=== PATIENT | male | born 1970 | race Caucasian/White ===

== ENCOUNTER 2018-08-11 15:25 | Emergency (ER) | payer OTHER ==
[2018-08-11 15:36] VITALS: BP 126/80
--- NOTE | 2018-08-11 16:04 | UC ---
Hand/Wrist HPI - HPI Summary HPI Summary: 47 yo male presents with LEFT thumb pain. He is right handed. He tells me that he was playing tennis yesterday and fell forward onto his left hand and his thumb bent backward pretty far. Since that time he has developed mild bruising and swelling, but the pain has improved. He has not been taking anything OTC or applying ice to the area. He states he wants to make sure nothing is broken. Denies numbness or tingling. - History Of Current Complaint Chief Complaint: UCUpperExtremity Stated Complaint: HAND INJURY Time Seen by Provider: 08/11/18 15:40 Hx Obtained From: Patient Onset/Duration: Sudden Onset Severity Initially: Moderate Severity Currently: Mild Pain Intensity: 4 Pain Scale Used: 0-10 Numeric - Allergies/Home Medications Allergies/Adverse Reactions: Allergies Allergy/AdvReac Type Severity Reaction Status Date / Time No Known Allergies Allergy Verified 08/11/18 15:36 Home Medications: Home Medications Ibuprofen TAB* [Advil TAB*] 200 mg PO Q6H PRN 08/11/18 [History Confirmed ] PMH/Surg Hx/FS Hx/Imm Hx - Additional Past Medical History Additional PMH: None - Surgical History Surgical History: Yes Surgery Procedure, Year, and Place: appendectomy - Family History Known Family History: Positive: None - Social History Occupation: Employed Full-time Lives: With Family Alcohol Use: Occasionally Substance Use Type: None Smoking Status (MU): Never Smoked Tobacco Review of Systems All Other Systems Reviewed And Are Negative: Yes Constitutional: Positive: Negative Skin: Positive: Negative Respiratory: Positive: Negative Cardiovascular: Positive: Negative Gastrointestinal: Positive: Negative Neurovascular: Positive: Negative Musculoskeletal: Positive: Other: - Left thumb pain and bruising Neurological: Positive: Negative Psychological: Positive: Negative Physical Exam - Summary Physical Exam Summary: GENERAL: NAD. WDWN. No pain distress. SKIN: No rashes, sores, lesions, or open wounds. CHEST: No accessory muscle use. Breathing comfortably and in no distress. CV: Pulses intact radial and ulnar. Cap refill <2seconds MSK: LEFT THUMB: Mild TTP at CMC and MC. FROM with mild pain in these areas. Mild edema and ecchymosis at volar aspect. No snuffbox tenderness NEURO: Alert. Sensations intact hand and all fingers. PSYCH: Age appropriate behavior. Triage Information Reviewed: Yes Vital Signs: Initial Vital Signs Temp 97 F 08/11/18 15:33 Pulse 73 08/11/18 15:33 Resp 14 08/11/18 15:33 BP 126/80 08/11/18 15:33 Pulse Ox 97 08/11/18 15:33 Vital Signs Reviewed: Yes Hand/Wrist Course/Dx - Course Course Of Treatment: XR: IMPRESSION: NO ACUTE OSSEOUS INJURY. IF SYMPTOMS PERSIST, RECOMMEND REPEAT IMAGING. Pt was placed in a thumb spica splint and advised to RICE and take ibuprofen for discomfort. If symptoms do not improve to f/u and be rechecked - Differential Dx/Diagnosis Provider Diagnosis: Left thumb sprain Discharge - Sign-Out/Discharge Documenting (check all that apply): Patient Departure All imaging exams completed and their final reports reviewed: Yes - Discharge Plan Condition: Stable Disposition: HOME Patient Education Materials: [employer] (ED) Referrals: No Primary Care Phys,NOPCP [Primary Care Provider] - Additional Instructions: If you develop a fever, shortness of breath, chest pain, new or worsening symptoms - please call your PCP or go to the ED. Use the thumb splint for added protection and pain relief. Rest, Ice, and elevate your wrist/hand as much as possible. May take ibuprofen for discomfort as directed - Billing Disposition and Condition Condition: STABLE Disposition: Home
== END 2018-08-11 16:20 | disposition home or self-care (01) ==
LOC: UCEAST 15:25
DX: S63.602A Unspecified sprain of left thumb, initial encounter (principal); W18.30XA Fall on same level, unspecified, initial encounter; Y93.73 Activity, racquet and hand sports; Y92.9 Unspecified place or not applicable
CPT/HCPCS: 99202; G0463